=== PATIENT | female | born 1990 | race Caucasian/White ===

== ENCOUNTER 2022-09-12 08:29 | Emergency (ER) | payer BC, SELFPAY ==
[2022-09-12 08:40] VITALS: BP 126/73; PULSE 94; RESP 20; TEMP 36.7; O2SAT 100
--- NOTE | 2022-09-12 08:50 | ED.EYEPROB ---
HPI - Eye Problem General Chief complaint: Eye Problems Stated complaint: left eye History of Present Illness HPI Narrative: Patient presents with redness and itchiness to her left eye. Patient states eye was matted shut this morning. Patient reports no vision problems does not wear contacts. Related Data Home Medications Medication Instructions Recorded Confirmed Op Con Eye Drops Otc 09/12/22 Allergies Allergy/AdvReac Type Severity Reaction Status Date / Time Penicillins Allergy Unknown rash Verified 09/12/22 08:48 Review of Systems Review of Systems: CONSTITUTIONAL: Denies fever, chills, or sweats. EYES: Denies visual changes, redness, or discharge. ENT: Denies rhinorrhea, congestion, sore throat, or otalgia. CARDIOVASCULAR: Denies chest pain, palpitations, or edema. RESPIRATORY: Denies cough or dyspnea. GASTROINTESTINAL: Denies abdominal pain, nausea, vomiting, or diarrhea. GENITOURINARY: Denies dysuria or hematuria. SKIN: Denies rash or itching. MUSCULOSKELETAL: Denies back pain, joint pain, or myalgia. NEUROLOGIC: Denies headache, numbness, or weakness. PSYCHIATRIC: Denies anxiety or depression. PMFSH Comments At time of signature, agree with nursing past medical, surgical, social and family history. There is no relevant family history pertinent to the presenting complaint Exam Narrative: GENERAL: Well-appearing, well-nourished, and in no acute distress. HEAD: Normocephalic, atraumatic. EYES: PERRLA and EOMI. ENT: Nares clear, no rhinorrhea or epistaxis. Mucous membranes moist. NECK: Supple. CHEST: Clear to auscultation. No respiratory distress. HEART: Regular rate and rhythm. No murmur heard. Normal peripheral pulses. ABDOMEN: Soft, nontender, nondistended, normal active bowel sounds. EXTREMITIES: Normal range of motion. No edema. SKIN: Warm, dry, no rash. NEURO: No focal deficits. Alert and oriented x3. [place] Coma Scale Eye Opening: Spontaneous 4 [place] Coma Scale Motor: Obeys Commands 6 [place] Coma Scale Verbal: Oriented 5 [place] Coma Scale Total 15 Eyes: Conjunctivae: conjunctival abnormality right Neck: Other: eight conjunctiva reddened no drainage Course Course Level of Care: Express Care Visit Vital Signs Vital signs: Vital Signs Temperature 36.7 C 09/12/22 08:40 Pulse Rate 94 09/12/22 08:40 Respiratory Rate 20 09/12/22 08:40 Blood Pressure 126/73 09/12/22 08:40 Pulse Oximetry 100 09/12/22 08:40 Oxygen Delivery Room Air 09/12/22 08:40 Temperature 36.7 C 09/12/22 08:40 Pulse Rate 94 09/12/22 08:40 Respiratory Rate 20 09/12/22 08:40 Blood Pressure 126/73 09/12/22 08:40 Pulse Oximetry 100 09/12/22 08:40 Oxygen Delivery Room Air 09/12/22 08:40 MDM - Eye Problem Differential Diagnosis Differential diagnosis: Likely corneal abrasion, conjunctivitis, acute iritis, hyphema, periorbital cellulitis, subconjunctival hemorrhage, glaucoma, corneal ulcer and ruptured globe Discharge Plan Discharge Clinical Impression: Bacterial conjunctivitis Patient Disposition: Home, Self-Care Condition: Stable Instructions: Antibiotic Form, Conjunctivitis (ED) Additional Instructions: Conjunctivitis is spread by [id number] contact or by touching a contaminated surface. You can use artificial tears, cold and warm compresses-use, different compress for each eye, and increase hygiene such as hand-washing. Do not wear contacts for 1 week, if applicable. Do not return for 24 hours to daycare, school, workplace for 24 hours after first antibiotic dose. Change bedding. follow up with eye doctor in 24-48 hours -If you have any worsening of symptoms or any other concerns please go to the ED immediately. Prescriptions: New polymyxin B sulf-trimethoprim [Polytrim] 10,000 unit- 1 mg/mL drops 1 drop RIGHT EYE TID 5 Days Qty: 7 0RF Rx Instructions: while awake; do not exceed 6 doses in 24 hours prednisolone 15 mg
== END 2022-09-12 09:08 | disposition home or self-care (01) ==
PROVIDERS: Emergency Provider Nurse Practitioner Family
DX: H10.9 Unspecified conjunctivitis (principal)
CPT/HCPCS: 99203; G0463